=== PATIENT | female | born 1995 | race Two or more races ===

== ENCOUNTER 2021-02-16 20:18 | Outpatient (CLI) | payer OTHER ==
[2021-02-16] MEDS ORDERED: PRENATAL + DHA1 EAC1 (20:50)
== END 2021-02-17 05:18 | disposition home or self-care (01) ==
LOC: OBS/DEL 20:18
PROVIDERS: ATTEND Obstetrics & Gynecology
DX: O47.1 False labor at or after 37 completed weeks of gestation (principal); Z3A.39 39 weeks gestation of pregnancy

== ENCOUNTER 2021-02-19 15:15 | Inpatient (IN) | payer OTHER ==
[~2021-02-19] VITALS: Ht 154.9 cm; Wt 65.3 kg
[~2021-02-19 15:15] MED LIST: PRENATAL + DHA1 EAC1
== END 2021-02-22 19:08 | disposition home or self-care (01) | DRG 807 ==
LOC: EDUNIT# 15:15 → OB/GYN 02-20 02:25 → LDR 02-20 02:25 → OB/GYN 02-20 11:13
PROVIDERS: ADMIT Obstetrics & Gynecology; ATTEND Obstetrics & Gynecology
PROC: 10E0XZZ Delivery of Products of Conception, External Approach (ICD-10-PCS; principal; 2021-02-20)
PROC: 0KQM0ZZ Repair Perineum Muscle, Open Approach (ICD-10-PCS; 2021-02-20)
PROC: 10907ZC Drainage of Amniotic Fluid, Therapeutic from Products of Conception, Via Natural or Artificial Opening (ICD-10-PCS; 2021-02-20)
PROC: 4A1HXFZ Monitoring of Products of Conception, Cardiac Rhythm, External Approach (ICD-10-PCS; 2021-02-20)
DX: O70.1 Second degree perineal laceration during delivery (principal); Z37.0 Single live birth; Z3A.39 39 weeks gestation of pregnancy; Z20.822 Contact with and (suspected) exposure to COVID-19